=== PATIENT | male | born 1990 ===

== ENCOUNTER 2019-06-23 16:48 | Emergency (ER) | payer SELFPAY ==
[~2019-06-23] VITALS: Ht 167.6 cm; Wt 85.0 kg
[2019-06-23 16:56] VITALS: BP 151/98
--- NOTE | 2019-06-23 17:10 | NUR ---
Pt here for swollen throat and pain. Pt reports its hard to swallow and inabilty to clear his throat without hurting. Pt reports its been present for 3 months however last night he noted to have white patches in the back of his throat. Pt had a fever, denies sob or any chest pain or pressure. Pt denies abd pain.
[2019-06-23] MEDS ORDERED: DEXAMETHASONE 4 MG TABLET ONE (17:28)
[2019-06-23] MEDS ORDERED: DEXAMETHASONE 4 MG TABLET PO ONE (17:30)
--- NOTE | 2019-06-23 17:30 | NUR ---
PT MEDICATED PER EMAR.
--- NOTE | 2019-06-23 18:24 | NUR ---
LUNCH RN: RAD COMPLETED, AWAITING READ
--- NOTE | 2019-06-23 18:49 | NUR ---
Patient/Caregiver given discharge instructions and they have confirmed that they understand the instructions. Patient ambulatory with steady gait.
== END 2019-06-23 18:51 | disposition home or self-care (01) ==
LOC: ED 17:25
DX: J02.0 Streptococcal pharyngitis (principal); F17.200 Nicotine dependence, unspecified, uncomplicated
CPT/HCPCS: 70360; 99283